=== PATIENT | female | born 1950 | race Caucasian/White ===

== ENCOUNTER 2019-11-25 10:40 | Outpatient (CLI) | payer MEDICARE, OTHER, SELFPAY ==
--- NOTE | 2019-11-25 | US_ITS ---
WS: [id number] Transabdominal pelvic ultrasound. HISTORY: Bladder pressure. Patient is status post complete hysterectomy. No pelvic masses or fluid. Urinary bladder is not diste nded. US/US pelvic complete* [id number] IMPRESSION: Extremely limited evaluation of the pelvic structures. Prior hysterectomy and n ondistended bladder.
== END 2019-11-25 10:41 | disposition home or self-care (01) ==
LOC: RADOUTREAD 16:10
PROVIDERS: Family Provider Family Medicine; Visit Provider Family Medicine
DX: Z01.89 Encounter for other specified special examinations (principal)

== ENCOUNTER 2020-05-04 14:25 | Outpatient (CLI) | payer MEDICARE, OTHER, SELFPAY ==
--- NOTE | 2020-03-07 10:34 | ONC FU_ITS ---
Dr. Martinez Patient Follow-Up Note Patient: Aubree Cruz Unit #: [id number]: [id number] Dicatated By: Michael Martinez M.D.Date of Visit:Mar 03, 2020 Onc Med Follow-up/Prog Note Chief Complaint: Breast cancer. History of Present Illness: This is a 69 year-old woman with grade 2 infiltrating ductal carcinoma of the left breast, stage IA (T1b, N0, M0), ER/AK positive and HER-2/bernard nonamplified. On routine surveillance followup mammogram from 04/11/2011 she had concerning findings in her left breast. A diagnostic mammogram from 04/22/2011 showed an upper outer quadrant lesion in her left breast. On 05/19/2011 she underwent biopsy of th left breast lesion at the 2 o'clock position. Pathology showed an infiltrating ductal carcinoma, grade 2/3, in 3/11 tissue fragments. Her prognostic markers were ER 100%, AK 96%, and HER-2 1+ IHC and FISH not amplified at 1.28. On 06/10/2011 she underwent left breast lumpectomy and axillary sentinel lymph node biopsy. The lumpectomy specimen, one sentinel lymph node, and an additional 4 axillary lymph nodes removed showed no residual tumor. The size of the tumor was undetermined, but it was very small based on the discussion with her pathologist. Oncotype DX score was not performed. She received 5400 cGy adjuvant radiation therapy, competed on 09/08/2011. Adjuvant hormonal therapy with anatrozole 1mg daily was initiated in September of 2011. She was found to have significant osteoporosis on DEXA scan with T-score of -2.97, started on Fosamax. She was persistently vitamin D deficient. The repeat DEXA scan on 04/16/2013 showed improved T score in the femur to -2.1. Her DEXA scan 04/23/2015 showed a T score -2.6, consistent with osteoporosis. She continued the anastrozole until October 2016, at which point she completed 5 years of treatment. Her medical illnesses include hyperlipidemia and chronic migraine. 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 She does not smoke. INTERIM HISTORY: She has been feeling good generally. She has good energy and she has normal activity. Her ECOG score is 0. Her appetite is good. Her weight is down a few pounds. She has no fever or night sweats. She still has hot flashes. She has no shortness of breath, cough, or chest pain. She has no GI or complaints. She has no significant joint or bone pain. She has no focal neurologic symptoms. Medications: Calcarb 600/D 1 Tablet (of 600-400 mg - Units) Tablet Oral b.i.d., Fish Oil 1 Capsule Oral daily, Ibuprofen 1 Tablet (of 800 mg) Tablet Oral PRN, Latanoprost Solution Ophthalmic daily, Losartan Potassium 1 Tablet (of 25 mg) Oral daily, Simvastatin 1 Tablet (of 20 mg) Oral daily, Timolol Hemihydrate Solution Ophthalmic Allergies: No Known Allergies. Review of Systems: Constitutional - She is feeling good and her energy is good. She has normal activity. Her appetite is good and weight is stable. No fever or night sweats. She still has hot flashes, which is chronic. ECOG score is 0, ENMT - No sinus congestion/drainage. No mouth sores. No sore throat or difficulty swallowing, Hematologic/Lymphatic - No abnormal bruising or bleeding, Respiratory - No shortness of breath. No cough. No pleuritic pain or hemoptysis, Cardiovascular - No angina pain. No palpitations, Gastrointestinal - No nausea or vomiting. No heartburn or acid reflux. No diarrhea or constipation. No blood in the stool or black stools, Genitourinary (F) - No dysuria or hematuria. No urinary frequency. No urgency or incontinence, Musculoskeletal - No joint or bone pain, Integumentary - No skin complications, Neurologic - She occasionally has headache. No dizziness. No numbness or tingling. No other focal neurologic symptoms, Psychiatric - No anxiety or depression. No insomnia. Vital Signs: Performed on Mar 03, 2020 14:40 Height - 59.00 in Weight - 148.2 lbs (LOW) BSA - 1.62 sq.m BMI - 29.93 Temperature - 98.3 F (LOW) Pulse - 90 /min Respiration - 22 /min BP - 150/97 mm(hg) (HIGH) O2 Sat - 97 % Pain - 0 Physical Examination: Constitutional - She looks good generally, Eyes - Sclerae nonicteric. Conjunctivae clear, ENMT - No lesions noted in the oral cavity, Hematologic/Lymphatic - No cervical or clavicular adenopathy, Respiratory - Lungs are clear with good air movement bilaterally, Cardiovascular - Heart rhythm is regular. There is no murmur, gallop, or rub noted, Breasts - There is mild induration in the right breast. There is no mass palpable. The left breast shows no mass. There is no axillary adenopathy, Abdomen - Soft. Liver and spleen are not enlarged. There is no abdominal mass or ascites noted and there is no inguinal adenopathy, Extremities - No edema. Dorsais pedis pulses are palpable bilaterally, Neurologic - No focal neurologic deficits noted. Impression: 1. Patient with grade 2 infiltrating ductal carcinoma of the left breast, stage IA (T1b, N0, M0), ER/AK positive and HER-2/bernard nonamplified. An Oncotype DX score was not performed. 2. She underwent needle biopsy of the left breast on 05/19/2011. There was no residual carcinoma identified on a subsequent left breast lumpectomy and axillary sentinel lymph node biopsy. 3. She was given radiation to the left breast, completed on 09/08/2011 to a total dose of 5400 cGy. 4. Adjuvant hormonal therapy was Arimidex 1 mg daily was initiated in September of 2011. 5. She underwent lumpectomy and radiation for DCIS of the right breast in 2006. Her other medical illnesses include: 6. Osteoporosis. 7. Vitamin D deficiency. 8. Hyperlipidemia. 9. Chronic migraine. She had stopped the anastrozole in October 2016 after completing 5 years of treatment. Her repeat DEXA scan in April 2017 did show slight improvement, but there was still evidence of osteopenia with the mean femoral neck T score -2.0 and the lumbar spine T score -1.9. During followup she has been doing very well clinically with no evidence of recurrence of the breast cancer. Plan: She remains on observation/expectant management for the breast cancer. She will be scheduled for a repeat DEXA scan in April. I will see her again in one year. Signed By: Michael Martinez M.D. <<Signature on File>>
--- NOTE | 2020-05-04 14:29 | MM_ITS ---
WS: [id number] BILATERAL DIGITAL DIAGNOSTIC MAMMOGRAPHY WITH CAD CLINICAL INFORMATION: HX OF BREAST CA HISTORY: COMPARISON: May 01, 2019, 2017, and 2016. TECHNIQUE: Bilateral CC and MLO views. FINDINGS: Scattered fibroglandular densities bilaterally. Stable postoperative changes overlying the upper oute r quadrant left breast and mid lateral aspect of the right breast. Stable benign calcifications lumpe ctomy site left breast. Vascular calcifications right breast. No suspicious focal mass, asymmetry, calcifications, or architectural distortion. No evidence of marjorie gnancy. MM/[id number] IMPRESSION: BI-RADS: 2-Benign FOLLOW UP: 1 Year Follow-up Recommend return to annual diagnostic mammography.
--- NOTE | 2020-05-04 15:06 | XR_ITS ---
WS: [id number] DEXA (DUAL ENERGY X-RAY ABSORPTIOMETRY) Bone mineral density was performed using a [employer] machine. HISTORY: AGE RELATED OSTEOPOROSIS WITHOUT CURRENT PATHOLOGICAL FRACTURE. COMPARISON: 04/27/2017 Lumbar spine BMD (L1-L4): 0.916 g/cm2 T score: -2.2 Z score: -0.6 Total hip BMD: Left: 0.765 g/cm2. T score: -1.9 Z score: -0.4 Right: 0.713 g/cm2. T score: -2.3 Z score: -0.8 10 year probability of a major osteoporotic fracture is 16%. Compared to the prior study from 04/27/2017. Lumbar spine bone mineral density has decreased by 3.4%. Bilateral hips bone mineral density has decreased by 1.3%. XR/XR DEXA axial skeleton* [id number] IMPRESSION: 1. OSTEOPENIA based upon the WHO classification for females. 2. Significant decrease in bone mineral density in the lumbar spine since the prior study.
== END 2020-05-04 14:26 | disposition home or self-care (01) ==
PROVIDERS: PCP Family Medicine; Visit Provider Internal Medicine Medical Oncology
DX: Z08 Encounter for follow-up examination after completed treatment for malignant neoplasm (principal); Z85.3 Personal history of malignant neoplasm of breast; M81.0 Age-related osteoporosis without current pathological fracture; E78.00 Pure hypercholesterolemia, unspecified; G43.909 Migraine, unspecified, not intractable, without status migrainosus; E55.9 Vitamin D deficiency, unspecified; E78.5 Hyperlipidemia, unspecified; Z90.12 Acquired absence of left breast and nipple; Z92.3 Personal history of irradiation; Z78.0 Asymptomatic menopausal state
CPT/HCPCS: 77066; 77080; G0463

== ENCOUNTER 2021-03-04 14:23 | Outpatient (CLI) | payer MEDICARE, OTHER, SELFPAY ==
--- NOTE | 2021-03-06 15:35 | ONC FU_ITS ---
Dr. Martinez Patient Follow-Up Note Patient: Aubree Cruz Unit #: [id number]: [id number] Dicatated By: Michael Martinez M.D.Date of Visit:Mar 04, 2021 Onc Med Follow-up/Prog Note Chief Complaint: Breast cancer. History of Present Illness: This is a 70 year-old woman with grade 2 infiltrating ductal carcinoma of the left breast, stage IA (T1b, N0, M0), ER/GA positive and HER-2/bernard nonamplified. On routine surveillance followup mammogram from 04/11/2011 she had concerning findings in her left breast. A diagnostic mammogram from 04/22/2011 showed an upper outer quadrant lesion in her left breast. On 05/19/2011 she underwent biopsy of th left breast lesion at the 2 o'clock position. Pathology showed an infiltrating ductal carcinoma, grade 2/3, in 3/11 tissue fragments. Her prognostic markers were ER 100%, GA 96%, and HER-2 1+ IHC and FISH not amplified at 1.28. On 06/10/2011 she underwent left breast lumpectomy and axillary sentinel lymph node biopsy. The lumpectomy specimen, one sentinel lymph node, and an additional 4 axillary lymph nodes removed showed no residual tumor. The size of the tumor was undetermined, but it was very small based on the discussion with her pathologist. Oncotype DX score was not performed. She received 5400 cGy adjuvant radiation therapy, competed on 09/08/2011. Adjuvant hormonal therapy with anatrozole 1mg daily was initiated in September of 2011. She was found to have significant osteoporosis on DEXA scan with T-score of -2.97, started on Fosamax. She was persistently vitamin D deficient. The repeat DEXA scan on 04/16/2013 showed improved T score in the femur to -2.1. Her DEXA scan 04/23/2015 showed a T score -2.6, consistent with osteoporosis. She continued the anastrozole until October 2016, at which point she completed 5 years of treatment. Her medical illnesses include hyperlipidemia and chronic migraine. 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 She does not smoke. INTERIM HISTORY: She has been feeling pretty good generally. Her main complaint is that she recently has been down on her back a little, but that does appear to be getting better. She has good energy and she otherwise has had normal activity. ECOG score is 0. She has good appetite. She has not had fever. She occasionally has hot flashes at night. She has no shortness of breath, cough, or chest pain. She has no GI or complaints. She has no significant joint or bone pain. She does not complain of headache or dizziness, and she has no focal neurologic symptoms. She does have some type of cyst in her right axillary area which intermittently swells and drains. It does tend to be associated with activity using the right arm. Medications: Calcarb 600/D 1 Tablet (of 600-400 mg - Units) Tablet Oral b.i.d., Fish Oil 1 Capsule Oral daily, Ibuprofen 1 Tablet (of 800 mg) Tablet Oral PRN, Latanoprost Solution Ophthalmic daily, Losartan Potassium 1 Tablet (of 25 mg) Oral daily, Simvastatin 1 Tablet (of 20 mg) Oral daily, Timolol Hemihydrate Solution Ophthalmic Allergies: No Known Allergies. Vital Signs: Performed on Mar 04, 2021 14:43 Height - 59.00 in Weight - 147 lbs (LOW) BSA - 1.62 sq.m BMI - 29.69 Temperature - 97.1 F (LOW) Pulse - 97 /min Respiration - 18 /min BP - 126/84 mm(hg) O2 Sat - 96 % Pain - 0 Fatigue - 0 Physical Examination: Constitutional - She looks good generally, Eyes - Sclerae nonicteric. Conjunctivae clear, ENMT - No lesions noted in the oral cavity, Hematologic/Lymphatic - No cervical or clavicular adenopathy, Respiratory - Lungs are clear with good air movement bilaterally, Cardiovascular - Heart rhythm is regular. There is no murmur, gallop, or rub noted, Breasts - There is mild induration in the right breast. There is no mass palpable. The left breast shows no mass. There is no axillary adenopathy, Abdomen - Soft. Liver and spleen are not enlarged. There is no abdominal mass or ascites noted and there is no inguinal adenopathy, Extremities - No edema. Dorsais pedis pulses are palpable bilaterally, Integumentary - There is an elevated, cystic appearing lesion in the right axillary area measuring approximately 1 cm, Neurologic - No focal neurologic deficits noted. Problem List: 1. Grade 2 infiltrating ductal carcinoma of the left breast, stage IA (T1b, N0, M0), ER/GA positive and HER-2/bernard nonamplified. An Oncotype DX score was not performed. 2. She underwent lumpectomy and radiation for DCIS of the right breast in 2006. 3. Osteoporosis. 4. Vitamin D deficiency. 5. Hyperlipidemia. 6. Chronic migraine. Problems Addressed with this Encounter and Plan: 1. Patient with grade 2 infiltrating ductal carcinoma of the left breast, stage IA (T1b, N0, M0), ER/GA positive and HER-2/bernard nonamplified. An Oncotype DX score was not performed. She underwent needle biopsy of the left breast on 05/19/2011. There was no residual carcinoma identified on a subsequent left breast lumpectomy and axillary sentinel lymph node biopsy. She was given radiation to the left breast, completed on 09/08/2011 to a total dose of 5400 cGy. Adjuvant hormonal therapy was Arimidex 1 mg daily was initiated in September of 2011. It was stopped in October 2016 after completing 5 years of treatment. During follow-up there has been no evidence of recurrence of the breast cancer. She remains on expectant management. She will now continue her regular follow-up with Dr. Gonzalez. She should continue her surveillance with bilateral diagnostic mammogram yearly. Those are due in April, and I will go ahead and schedule those for this year. I will plan to see her again only as needed. 2.. She underwent lumpectomy and radiation for DCIS of the right breast in 2006. There has been no evidence of recurrence. 3. Osteoporosis. Her DEXA scan in April 2020 was slightly better with T score -2.2 in the lumbar spine, -1.9 in the left hip, and -2.3 in the right hip. She continues vitamin D supplementation, but she is otherwise not on any specific treatment. Her DEXA scan is due to be repeated in April 2022. Signed By: Michael Martinez M.D. <<Signature on File>>
== END 2021-03-04 14:24 | disposition home or self-care (01) ==
LOC: ONCMED 14:29
PROVIDERS: PCP Family Medicine; Visit Provider Internal Medicine Medical Oncology
DX: C50.812 Malignant neoplasm of overlapping sites of left female breast (principal); Z17.0 Estrogen receptor positive status [ER+]; M81.0 Age-related osteoporosis without current pathological fracture; E55.9 Vitamin D deficiency, unspecified; E78.5 Hyperlipidemia, unspecified; G43.919 Migraine, unspecified, intractable, without status migrainosus; Z79.811 Long term (current) use of aromatase inhibitors; Z79.899 Other long term (current) drug therapy; Z90.12 Acquired absence of left breast and nipple; Z92.3 Personal history of irradiation
CPT/HCPCS: 99214

== ENCOUNTER 2021-05-06 10:54 | Outpatient (CLI) | payer MEDICARE, OTHER, SELFPAY ==
--- NOTE | 2021-05-06 11:01 | MM_ITS ---
WS: [id number] BILATERAL DIGITAL DIAGNOSTIC MAMMOGRAM MAMMOGRAPHY WITH CAD CLINICAL INFORMATION: HX OF BREAST CA HISTORY: COMPARISON: May 04, 2020 TECHNIQUE: Bilateral CC, MLO, and ML views. FINDINGS: Scattered fibroglandular densities bilaterally. Dystrophic calcifications upper outer left breast. A few punctate calcifications. Prior postoperative changes upper outer quadrant left breast and mid lat eral right breast with parenchymal fibrosis. This is similar to the prior studies. Vascular calcifica tion. 7 mm ovoid nodule left breast along the posterior nipple line stable over multiple prior examin ations dating back to 2017 likely a small intramammary lymph node. No suspicious focal mass, asymmetry, calcifications, or architectural distortion. No evidence of marjorie gnancy. MM/[id number] IMPRESSION: BI-RADS: 2-Benign FOLLOW UP: 1 Year Follow-up Recommend return to annual diagnostic mammography.
== END 2021-05-06 10:55 | disposition home or self-care (01) ==
LOC: RADSHAW 11:00
PROVIDERS: PCP Family Medicine; Visit Provider Internal Medicine Medical Oncology
DX: Z85.3 Personal history of malignant neoplasm of breast (principal)
CPT/HCPCS: 77066

== ENCOUNTER 2022-06-20 10:09 | Outpatient (CLI) | payer MEDICARE, OTHER, SELFPAY ==
--- NOTE | 2022-06-20 10:18 | XR_ITS ---
WS: [id number] SCREENING DEXA SCAN The [employer] travel CLINICAL INFORMATION: POSTMENOPAUSAL COMPARISON: May 04, 2020 FINDINGS: The L1-L4 bone mineral density measures 0.956 g/cm2. This corresponds to a T score score of -1.9 and Z score of -0.2. Left femoral neck bone mineral density measures 0.582 g/cm2. This corresponds to a T score of -3.4 an d Z score of -1.8. Right femoral neck bone mineral density measures 0.624 g/cm2. This corresponds to a T score -3.0of an d Z score of -1.4. Mean femoral neck bone mineral density measures 0.603 g/cm2. This corresponds to a T score of -3.2 an d Z score of -1.6. XR/XR DEXA axial skeleton* [id number] IMPRESSION: Osteopenia lumbar spine. Osteoporosis femoral necks. Patient's FRAX calculated 10 year probability for major osteoporotic fracture i s 25.7 % and osteoporotic hip fracture is 11.5%. Bone mineralization lumbar spine increased +4.4% since 2019. Bone mineralization femoral necks has decreased -18.4% since 2020.
--- NOTE | 2022-06-20 10:18 | MM_ITS ---
WS: [id number] DIAGNOSTIC BILATERAL DIGITAL BREAST TOMOSYNTHESIS MAMMOGRAPHY WITH CAD HISTORY: HX OF BREAST CA, bilateral COMPARISON: 05/06/2021 and 05/04/2020, 05/01/2019 TECHNIQUE: Bilateral craniocaudad, mediolateral oblique, and mediolateral views are submitted with to mosynthesis and SM. Computer aided detection utilized. Breast composition: There are scattered areas of fibroglandular density. Postsurgical changes are not ed in the upper-outer quadrant of each breast. Asymmetries are stable. No suspicious interval change. MM/[place] [id number] IMPRESSION: BI-RADS: 2-Benign FOLLOW UP: 1 Year Follow-up
== END 2022-06-20 10:10 | disposition home or self-care (01) ==
LOC: RAD 10:11
PROVIDERS: PCP Family Medicine; Visit Provider Family Medicine
DX: Z85.3 Personal history of malignant neoplasm of breast (principal); Z78.0 Asymptomatic menopausal state; M81.0 Age-related osteoporosis without current pathological fracture; M85.88 Other specified disorders of bone density and structure, other site
CPT/HCPCS: 77062; 77080

== ENCOUNTER 2023-06-21 10:30 | Outpatient (CLI) | payer MEDICARE, OTHER, SELFPAY ==
--- NOTE | 2023-06-21 10:46 | MM_ITS ---
WS: [id number] Bilateral diagnostic 3D tomosynthesis digital mammogram, 06/21/2023 Clinical Data: ANNUAL - HX BR CA Comparison: 06/20/2022, 05/06/2021, 05/01/2019, 04/30/2018, 04/27/2017, 04/25/2016, 04/21/2015, 04/02/2014, 04/01/20 13, 09/28/2012, 04/03/2012, 02/10/2012 04/11/2011, 04/09/2010, 03/31/2009, 04/03/2008, 02/29/2008, 08/28/2007, 01/23/2007, 12/21/2006. Findings: The breast parenchymal pattern shows fibroglandular tissue. There are dystrophic calcifications in th e upper outer quadrant of the left breast. There are mole markers on both breasts. No spiculated mass es nor clustered calcifications are seen. There are post operative changes in the upper outer quadran ts of both breasts unchanged. Impression: 1. Stable postoperative changes in both breasts. 2. No evidence of recurrent carcinoma. 3. Recommend annual mammograms. MM/[place] [id number] BIRADS: 2-Benign FOLLOW UP: 1 Year Follow-up The CAD dry cleaning checker was used.
== END 2023-06-21 10:31 | disposition home or self-care (01) ==
PROVIDERS: PCP Family Medicine; Visit Provider Family Medicine
DX: Z85.3 Personal history of malignant neoplasm of breast (principal); Z98.890 Other specified postprocedural states
CPT/HCPCS: 77062; G0279